=== PATIENT | male | born 1980 | race Hispanic/Latino ===

== ENCOUNTER 2024-09-15 11:51 | Inpatient (IN) | payer MEDICAID, SELFPAY ==
[2024-09-15 12:43] LABS: #Basophils 0.06 10x3/uL (0.0-0.2); #Eosinophils Less than 0.03 10x3/uL (0.0-0.7); %Basophils 1.1 % (0.0-1.0); %Eosinophils 0.2 % (0.0-10.0); %Lymphocytes 11.7 % (21.0-51.0); %Monocytes 8.5 % (0.0-10.0); %Neutrophils 78.1 % (42.0-75.0); Hematocrit 36.4 % (42.0-52.0); Hemoglobin 12.4 g/dL (14.0-18.0); Mean Corpuscular HGB CONC 34.1 g/dL (32.0-36.0); Mean Corpuscular Hemoglobin 35.3 pg (27.0-31.0); Mean Corpuscular Volume 103.7 fL (78.0-98.0); Mean Platelet Volume 11.6 fL (7.4-10.4); Platelet Count 22 10x3/uL (130-400); RBC Distribution Width 15.4 % (11.5-14.5); Red Blood Cell (RBC) Count 3.51 mill/uL (4.70-6.10)
[2024-09-15 12:48] LABS: INR-International Normal Ratio 1.2; PTT 33.2 sec (22.9-36.1); Prothrombin Time 15.2 sec (12.0-14.7)
[2024-09-15 12:48] LABS: Amphetamine Not Detected (NotDetected); Barbiturates Screen Not Detected (NotDetected); Benzodiazepine Screen Not Detected (NotDetected); Cocaine Metabolite Screen Not Detected (NotDetected); Methadone Not Detected (NotDetected); Methamphetamine Not Detected (NotDetected); Opiate Screen Not Detected (NotDetected); Oxycodone Screen Not Detected (NotDetected); Phencyclidine (PCP) Not Detected (NotDetected); THC/Cannabinoid Screen Not Detected (NotDetected); Tricyclic Screen Not Detected (NotDetected)
[2024-09-15 13:06] LABS: Lipase 43 U/L (8-78)
[2024-09-15 13:08] LABS: Acetaminophen Less than 10 mcg/mL (Less than 10); Alcohol 143.6 mg/dL (Less than 10); Salicylate Less than 8.0 mg/dL (Less than 8.0)
[2024-09-15 13:12] LABS: ALT (SGPT) 50 U/L (8-55); AST (SGOT) 166 U/L (5-34); Albumin 2.8 g/dL (3.5-5.0); Alkaline Phosphatase 210 U/L (40-110); Anion Gap 16 mmol/L (10-20); BUN (Urea Nitrogen) 5 mg/dL (8.9-20.6); Bilirubin, Total 6.9 mg/dL (0.2-1.2); Calc. Creatinine Clearance 0 mL/min (70-130); Calcium 8.2 mg/dL (7.8-10.44); Carbon Dioxide 23 mmol/L (22-29); Chloride 107 mmol/L (98-107); Estimated GFR 130; Glucose 101 mg/dL (70-105); Magnesium 1.3 mg/dL (1.6-2.6); Potassium 3.7 mmol/L (3.5-5.1); Protein, Total 7.8 g/dL (6.0-8.3); Sodium 142 mmol/L (136-145)
[2024-09-15 13:18] LABS: Platelet Adequacy Comment Platelets Decreased; Polychromasia SLIGHT = 2-3 cells HPF (0-2); Target Cells SLIGHT = 2-5 cells HPF (0-1)
[2024-09-15 13:22] LABS: Troponin I Less than 0.010 ng/mL (< 0.028)
[2024-09-15] MEDS ORDERED: LORazepam 2 MG/ML SYR.(CARPUJECT) ONE (13:37)
[2024-09-15] MEDS ORDERED: Magnesium 2 GM/50 ML BAG (IN WATER) ONE (13:37)
[2024-09-15] MEDS ORDERED: Pantoprazole 40 MG VIAL ONE ×2 (15:26→16:56)
[2024-09-15] MEDS ORDERED: Pantoprazole 80 MG, Admixture Fee 1 EACH in Sodium Chloride 0.9% 100 ML IVPB SCH (15:30)
[2024-09-15] MEDS ORDERED: Ondansetron PF 4 MG/2 ML Vial IVP PRN (16:25)
[2024-09-15] MEDS ORDERED: Ondansetron ODT 4 MG TAB PO PRN (16:25)
[2024-09-15] MEDS ORDERED: Lorazepam 1 MG TAB PO PRN (16:27)
[2024-09-15] MEDS ORDERED: Electrolyte Replacement Protocol 1 EACH FS SCH (16:30)
[2024-09-15] MEDS ORDERED: Electrolyte Replacement Protocol FS PRN (16:30)
[2024-09-15] MEDS ORDERED: Thiamine HCl 200 MG/2 ML VIAL ONE (16:47)
[2024-09-15] MEDS ORDERED: Sodium Chloride 0.9% 100 ML BAG ONE (16:56)
[2024-09-15] MEDS: Thiamine HCl 200 MG/2 ML VIAL SLOW IVP SCH (16:57)
[2024-09-15 18:07] LABS: #Basophils 0.05 10x3/uL (0.0-0.2); #Eosinophils Less than 0.03 10x3/uL (0.0-0.7); %Basophils 0.9 % (0.0-1.0); %Eosinophils 0.4 % (0.0-10.0); %Lymphocytes 14.2 % (21.0-51.0); %Monocytes 10.1 % (0.0-10.0); Hematocrit 32.2 % (42.0-52.0); Mean Corpuscular HGB CONC 34.2 g/dL (32.0-36.0); Mean Corpuscular Hemoglobin 35.4 pg (27.0-31.0); Mean Corpuscular Volume 103.5 fL (78.0-98.0); Mean Platelet Volume 12.6 fL (7.4-10.4); Platelet Count 18 10x3/uL (130-400); RBC Distribution Width 15.7 % (11.5-14.5); Red Blood Cell (RBC) Count 3.11 mill/uL (4.70-6.10)
[2024-09-15 19:06] LABS: Iron 175 ug/dL (65-175); Iron Binding Capacity, Total 179 mcg/dL (261-462)
[2024-09-15 19:30] LABS: HBSAB Concentration Less than 8.00 mIU/mL; HBsAg Index 0.36 S/CO (0-0.99); Hep A IgM AB NONREACTIVE (NonReactive); Hep A IgM S/CO 0.24 S/CO (0-0.79); Hep B Core IgM Index 0.07 S/CO (0-0.79); Hep B Core Total Ab NONREACTIVE (NonReactive); Hep B Core Total Index 0.25 S/CO (0-0.79); Hep B Surf AB NONREACTIVE (NonReactive); Hep B Surf Ag NONREACTIVE S/CO (NonReactive); Hep C IgG Ab NONREACTIVE S/CO (NonReactive); Hep C Index 0.13 S/CO (0-0.79); Hepatitis B Core IgM Abs NONREACTIVE S/CO (NonReactive)
[2024-09-15 23:38] LABS: #Basophils 0.05 10x3/uL (0.0-0.2); %Eosinophils 1.2 % (0.0-10.0); %Lymphocytes 16.4 % (21.0-51.0); Hematocrit 31.3 % (42.0-52.0); Hemoglobin 10.8 g/dL (14.0-18.0); Mean Corpuscular HGB CONC 34.5 g/dL (32.0-36.0); Mean Corpuscular Hemoglobin 35.8 pg (27.0-31.0); Mean Corpuscular Volume 103.6 fL (78.0-98.0); Mean Platelet Volume 11.8 fL (7.4-10.4); Platelet Count 18 10x3/uL (130-400); RBC Distribution Width 15.5 % (11.5-14.5); Red Blood Cell (RBC) Count 3.02 mill/uL (4.70-6.10)
[2024-09-16] MEDS: Octreotide Acetate 1,250 MCG in Sodium Chloride 0.9% 250 ML 250 ML IVPB SCH (00:12)
[2024-09-16 05:33] LABS: ALT (SGPT) 40 U/L (8-55); AST (SGOT) 141 U/L (5-34); Albumin 2.4 g/dL (3.5-5.0); Alkaline Phosphatase 175 U/L (40-110); Anion Gap 13 mmol/L (10-20); BUN (Urea Nitrogen) 8 mg/dL (8.9-20.6); Calc. Creatinine Clearance 178 mL/min (70-130); Calcium 8.2 mg/dL (7.8-10.44); Carbon Dioxide 22 mmol/L (22-29); Chloride 103 mmol/L (98-107); Estimated GFR 128; Globulin 5.2 g/dL (2.4-3.5); Glucose 80 mg/dL (70-105); Potassium 4.5 mmol/L (3.5-5.1); Protein, Total 7.6 g/dL (6.0-8.3); Sodium 133 mmol/L (136-145)
[2024-09-16 06:04] LABS: #Basophils 0.05 10x3/uL (0.0-0.2); %Lymphocytes 17.3 % (21.0-51.0); %Monocytes 11.5 % (0.0-10.0); %Neutrophils 68.8 % (42.0-75.0); Hematocrit 33.6 % (42.0-52.0); Hemoglobin 11.5 g/dL (14.0-18.0); Mean Corpuscular HGB CONC 34.2 g/dL (32.0-36.0); Mean Corpuscular Hemoglobin 35.4 pg (27.0-31.0); Mean Corpuscular Volume 103.4 fL (78.0-98.0); Mean Platelet Volume 11.2 fL (7.4-10.4); Platelet Count 35 10x3/uL (130-400); RBC Distribution Width 15.1 % (11.5-14.5); Red Blood Cell (RBC) Count 3.25 mill/uL (4.70-6.10)
[2024-09-16] MEDS: Folic Acid 1 MG TAB PO SCH (10:27)
[2024-09-16] MEDS: Multivit, Therapeutic 1 TAB PO SCH (10:27)
[2024-09-16 10:59] LABS: #Basophils 0.05 10x3/uL (0.0-0.2); %Eosinophils 1.2 % (0.0-10.0); %Monocytes 12.2 % (0.0-10.0); %Neutrophils 68.2 % (42.0-75.0); Hemoglobin 11.6 g/dL (14.0-18.0); Mean Corpuscular HGB CONC 35.2 g/dL (32.0-36.0); Mean Corpuscular Hemoglobin 36.1 pg (27.0-31.0); Mean Corpuscular Volume 102.8 fL (78.0-98.0); Platelet Count 35 10x3/uL (130-400); RBC Distribution Width 14.4 % (11.5-14.5); Red Blood Cell (RBC) Count 3.21 mill/uL (4.70-6.10)
[2024-09-16] MEDS ORDERED: Iopamidol-370 76% 500 ML MDV (1 ML CHARGE) ONE (14:13)
[2024-09-16] MEDS ORDERED: Lorazepam 1 MG TAB PO PRN (16:27)
[2024-09-16 17:04] LABS: #Basophils 0.05 10x3/uL (0.0-0.2); %Basophils 1.1 % (0.0-1.0); %Eosinophils 1.1 % (0.0-10.0); %Monocytes 10.6 % (0.0-10.0); Hematocrit 35.2 % (42.0-52.0); Hemoglobin 12.4 g/dL (14.0-18.0); Mean Corpuscular HGB CONC 35.2 g/dL (32.0-36.0); Mean Corpuscular Hemoglobin 36.2 pg (27.0-31.0); Mean Corpuscular Volume 102.6 fL (78.0-98.0); Platelet Count 35 10x3/uL (130-400); RBC Distribution Width 14.4 % (11.5-14.5); Red Blood Cell (RBC) Count 3.43 mill/uL (4.70-6.10)
[2024-09-16 22:07] LABS: #Basophils 0.04 10x3/uL (0.0-0.2); %Basophils 0.9 % (0.0-1.0); %Eosinophils 1.1 % (0.0-10.0); %Lymphocytes 16.6 % (21.0-51.0); %Monocytes 11.9 % (0.0-10.0); %Neutrophils 68.9 % (42.0-75.0); Hematocrit 33.4 % (42.0-52.0); Hemoglobin 11.9 g/dL (14.0-18.0); Mean Corpuscular HGB CONC 35.6 g/dL (32.0-36.0); Mean Corpuscular Hemoglobin 36.7 pg (27.0-31.0); Mean Corpuscular Volume 103.1 fL (78.0-98.0); Mean Platelet Volume 12.3 fL (7.4-10.4); Platelet Count 37 10x3/uL (130-400); RBC Distribution Width 14.2 % (11.5-14.5); Red Blood Cell (RBC) Count 3.24 mill/uL (4.70-6.10)
[2024-09-17 06:52] LABS: #Basophils 0.05 10x3/uL (0.0-0.2); %Basophils 0.8 % (0.0-1.0); %Eosinophils 1.1 % (0.0-10.0); %Lymphocytes 18.1 % (21.0-51.0); %Monocytes 9.1 % (0.0-10.0); %Neutrophils 70.4 % (42.0-75.0); Hematocrit 37.9 % (42.0-52.0); Hemoglobin 13.2 g/dL (14.0-18.0); Mean Corpuscular HGB CONC 34.8 g/dL (32.0-36.0); Mean Corpuscular Hemoglobin 35.5 pg (27.0-31.0); Mean Corpuscular Volume 101.9 fL (78.0-98.0); Mean Platelet Volume 13.1 fL (7.4-10.4); Platelet Count 45 10x3/uL (130-400); RBC Distribution Width 14.2 % (11.5-14.5); Red Blood Cell (RBC) Count 3.72 mill/uL (4.70-6.10)
[2024-09-17 06:57] LABS: ALT (SGPT) 44 U/L (8-55); AST (SGOT) 137 U/L (5-34); Alkaline Phosphatase 209 U/L (40-110); Anion Gap 12 mmol/L (10-20); BUN (Urea Nitrogen) 11 mg/dL (8.9-20.6); Calc. Creatinine Clearance 152 mL/min (70-130); Calcium 8.7 mg/dL (7.8-10.44); Carbon Dioxide 20 mmol/L (22-29); Chloride 103 mmol/L (98-107); Estimated GFR 122; Glucose 105 mg/dL (70-105); Magnesium 1.7 mg/dL (1.6-2.6); Potassium 3.4 mmol/L (3.5-5.1); Sodium 132 mmol/L (136-145)
[2024-09-17] MEDS: Magnesium 2 GM/50 ML(in water) 2 GM in Premix 1 BAG IVPB SCH (10:23)
[2024-09-17] MEDS: Potassium Chloride 20 MEQ TAB PO SCH (10:24)
[2024-09-17] MEDS: Pantoprazole 40 MG VIAL IVP SCH (20:12)
[2024-09-17] MEDS: Lorazepam 1 MG TAB PO PRN (20:55)
[2024-09-18] MEDS: Lorazepam 2 MG/ML VIAL SLOW IVP SCH ×3 (04:42→19:16)
[2024-09-18 06:36] LABS: #Basophils 0.05 10x3/uL (0.0-0.2); %Basophils 1.1 % (0.0-1.0); %Eosinophils 1.1 % (0.0-10.0); %Lymphocytes 17.7 % (21.0-51.0); %Monocytes 14.3 % (0.0-10.0); %Neutrophils 65.4 % (42.0-75.0); Hematocrit 33.8 % (42.0-52.0); Hemoglobin 11.5 g/dL (14.0-18.0); Mean Corpuscular Hemoglobin 35.7 pg (27.0-31.0); Mean Platelet Volume 11.6 fL (7.4-10.4); Platelet Count 43 10x3/uL (130-400); RBC Distribution Width 14.5 % (11.5-14.5); Red Blood Cell (RBC) Count 3.22 mill/uL (4.70-6.10)
[2024-09-18 06:43] LABS: ALT (SGPT) 42 U/L (8-55); AST (SGOT) 121 U/L (5-34); Albumin 2.7 g/dL (3.5-5.0); Alkaline Phosphatase 171 U/L (40-110); Anion Gap 12 mmol/L (10-20); BUN (Urea Nitrogen) 10 mg/dL (8.9-20.6); Bilirubin, Total 9.1 mg/dL (0.2-1.2); Calc. Creatinine Clearance 175 mL/min (70-130); Calcium 8.4 mg/dL (7.8-10.44); Carbon Dioxide 21 mmol/L (22-29); Chloride 104 mmol/L (98-107); Estimated GFR 127; Globulin 5.4 g/dL (2.4-3.5); Glucose 85 mg/dL (70-105); Potassium 3.6 mmol/L (3.5-5.1); Protein, Total 8.1 g/dL (6.0-8.3); Sodium 133 mmol/L (136-145)
[2024-09-18] MEDS ORDERED: Lorazepam 2 MG/ML VIAL SLOW IVP SCH (09:00)
[2024-09-18] MEDS ORDERED: Dexmedetomidine In 0.9 % NaCl 100 ML IVPB SCH (11:07)
[2024-09-18] MEDS: Dexmedetomidine In 0.9 % NaCl 100 ML IVPB SCH (12:45)
[2024-09-18] MEDS: Lorazepam 2 MG/ML VIAL ONE (12:51)
[2024-09-18] MEDS ORDERED: Lorazepam 0.5 MG TAB PO PRN (16:27)
[2024-09-18] MEDS: Dextrose 5%-Lactated Ringers 1,000 ML IV SCH (17:12)
[2024-09-18] MEDS: Thiamine 100 MG TAB PO SCH (17:16)
[2024-09-18] MEDS: Multivitamins, Adult 10 ML, Folic Acid 1 MG, Thiamine HCl 100 MG in Dextrose 5 %-0.45 %... IV SCH (17:18)
[2024-09-18] MEDS: Lorazepam 2 MG/ML VIAL IM PRN (23:33)
[2024-09-19 03:35] LABS: #Basophils 0.04 10x3/uL (0.0-0.2); %Basophils 1.3 % (0.0-1.0); %Eosinophils 1.9 % (0.0-10.0); %Lymphocytes 18.7 % (21.0-51.0); %Monocytes 13.7 % (0.0-10.0); %Neutrophils 63.8 % (42.0-75.0); Hematocrit 37.1 % (42.0-52.0); Hemoglobin 12.4 g/dL (14.0-18.0); Mean Corpuscular HGB CONC 33.4 g/dL (32.0-36.0); Mean Corpuscular Hemoglobin 36.2 pg (27.0-31.0); Mean Corpuscular Volume 108.2 fL (78.0-98.0); Platelet Count 42 10x3/uL (130-400); RBC Distribution Width 14.3 % (11.5-14.5); Red Blood Cell (RBC) Count 3.43 mill/uL (4.70-6.10)
[2024-09-19 03:45] LABS: Phosphorus 2.8 mg/dL (2.3-4.7)
[2024-09-19 03:47] LABS: ALT (SGPT) 43 U/L (8-55); AST (SGOT) 121 U/L (5-34); Albumin 2.5 g/dL (3.5-5.0); Alkaline Phosphatase 172 U/L (40-110); Anion Gap 9 mmol/L (10-20); BUN (Urea Nitrogen) 7 mg/dL (8.9-20.6); Bilirubin, Total 8.1 mg/dL (0.2-1.2); Calc. Creatinine Clearance 195 mL/min (70-130); Calcium 8.1 mg/dL (7.8-10.44); Carbon Dioxide 20 mmol/L (22-29); Chloride 103 mmol/L (98-107); Estimated GFR 135; Globulin 5.4 g/dL (2.4-3.5); Glucose 200 mg/dL (70-105); Magnesium 1.5 mg/dL (1.6-2.6); Potassium 3.6 mmol/L (3.5-5.1); Protein, Total 7.9 g/dL (6.0-8.3); Sodium 128 mmol/L (136-145)
[2024-09-19] MEDS: Magnesium 2 GM/50 ML(in water) 2 GM in Premix 1 BAG IVPB SCH ×2 (05:18→15:23)
[2024-09-19] MEDS: Sodium Chloride 0.9% 1,000 ML IV SCH ×3 (11:55→17:11)
[2024-09-19] MEDS ORDERED: Electrolyte Replacement Protocol FS PRN (14:30)
[2024-09-19] MEDS: Albumin 25% 100 ML ONE (16:24)
[2024-09-19] MEDS: Multivitamins, Adult 10 ML, Folic Acid 1 MG, Thiamine HCl 100 MG, Admixture Fee 1 EACH ... IV SCH (17:58)
[2024-09-19] MEDS: Rifaximin 550 MG TAB PER TUBE SCH (20:52)
[2024-09-19] MEDS: Lactulose 20 GM (30 mL) UDCUP PER TUBE SCH (20:52)
[2024-09-19] MEDS: Albumin 25% 25 GM (100 mL) BOT IVPB SCH (20:52)
[2024-09-20 03:58] LABS: #Basophils 0.04 10x3/uL (0.0-0.2); %Basophils 0.7 % (0.0-1.0); %Eosinophils 0.5 % (0.0-10.0); %Lymphocytes 13.3 % (21.0-51.0); %Monocytes 12.9 % (0.0-10.0); %Neutrophils 72.4 % (42.0-75.0); Hematocrit 31.8 % (42.0-52.0); Hemoglobin 10.9 g/dL (14.0-18.0); Mean Corpuscular HGB CONC 34.3 g/dL (32.0-36.0); Platelet Count 40 10x3/uL (130-400); RBC Distribution Width 14.6 % (11.5-14.5); Red Blood Cell (RBC) Count 3.03 mill/uL (4.70-6.10)
[2024-09-20 04:09] LABS: ALT (SGPT) 68 U/L (8-55); AST (SGOT) 182 U/L (5-34); Albumin 2.9 g/dL (3.5-5.0); Alkaline Phosphatase 135 U/L (40-110); Anion Gap 9 mmol/L (10-20); BUN (Urea Nitrogen) 7 mg/dL (8.9-20.6); Bilirubin, Total 7.4 mg/dL (0.2-1.2); Calc. Creatinine Clearance 160 mL/min (70-130); Calcium 7.8 mg/dL (7.8-10.44); Carbon Dioxide 21 mmol/L (22-29); Chloride 106 mmol/L (98-107); Estimated GFR 127; Globulin 4.2 g/dL (2.4-3.5); Glucose 97 mg/dL (70-105); Magnesium 1.7 mg/dL (1.6-2.6); Potassium 3.6 mmol/L (3.5-5.1); Protein, Total 7.1 g/dL (6.0-8.3); Sodium 132 mmol/L (136-145)
[2024-09-20 04:27] LABS: Free T4 (Free Thyroxine) 0.92 ng/dL (0.70-1.48)
[2024-09-20] MEDS: Magnesium 2 GM/50 ML(in water) 2 GM in Premix 1 BAG IVPB SCH (10:03)
[2024-09-20] MEDS: Sodium Chloride 0.9% 500 ML IV SCH (17:24)
[2024-09-21 23:31] VITALS: BMI 25.6
[2024-09-22 05:07] LABS: ALT (SGPT) 80 U/L (8-55); AST (SGOT) 141 U/L (5-34); Albumin 3.5 g/dL (3.5-5.0); Alkaline Phosphatase 150 U/L (40-110); Anion Gap 12 mmol/L (10-20); BUN (Urea Nitrogen) 7 mg/dL (8.9-20.6); Calc. Creatinine Clearance 149 mL/min (70-130); Calcium 8.8 mg/dL (7.8-10.44); Carbon Dioxide 20 mmol/L (22-29); Chloride 106 mmol/L (98-107); Estimated GFR 125; Globulin 4.4 g/dL (2.4-3.5); Glucose 96 mg/dL (70-105); Magnesium 1.5 mg/dL (1.6-2.6); Phosphorus 3.4 mg/dL (2.3-4.7); Potassium 3.7 mmol/L (3.5-5.1); Protein, Total 7.9 g/dL (6.0-8.3); Sodium 134 mmol/L (136-145)
[2024-09-22] MEDS: Magnesium 2 GM/50 ML(in water) 2 GM in Premix 1 BAG IVPB SCH (09:45)
[2024-09-22 15:49] VITALS: BMI 25.6
[2024-09-23] MEDS: Lorazepam 2 MG/ML VIAL SLOW IVP SCH (10:59)
[2024-09-23] MEDS: Magnesium 2 GM/50 ML(in water) 2 GM in Premix 1 BAG IVPB SCH (11:01)
[2024-09-23 12:12] LABS: EliA Vaculitis New Method **** NEW METHOD ****; Mitochondrial Ab 2.2 U/mL (<4 Negative)
[2024-09-24] MEDS: Lorazepam 2 MG/ML VIAL SLOW IVP SCH (04:19)
[2024-09-24] MEDS: Rifaximin 550 MG TAB PO SCH (20:01)
[2024-09-24] MEDS: Pantoprazole 40 MG DR.TAB PO SCH (20:01)
[2024-09-25 12:11] LABS: #Basophils 0.06 10x3/uL (0.0-0.2); %Basophils 1.2 % (0.0-1.0); %Lymphocytes 19.9 % (21.0-51.0); %Monocytes 16.4 % (0.0-10.0); %Neutrophils 61.3 % (42.0-75.0); Hematocrit 35.5 % (42.0-52.0); Hemoglobin 11.9 g/dL (14.0-18.0); Mean Corpuscular HGB CONC 33.5 g/dL (32.0-36.0); Mean Corpuscular Hemoglobin 35.7 pg (27.0-31.0); Mean Corpuscular Volume 106.6 fL (78.0-98.0); Platelet Count 58 10x3/uL (130-400); Red Blood Cell (RBC) Count 3.33 mill/uL (4.70-6.10)
[2024-09-25 12:23] LABS: Calc. Creatinine Clearance 156 mL/min (70-130); Estimated GFR 126
[2024-09-25 15:37] LABS: AST (SGOT) 150 U/L (5-34); Albumin 3.5 g/dL (3.5-5.0); Alkaline Phosphatase 187 U/L (40-110); Anion Gap 11 mmol/L (10-20); BUN (Urea Nitrogen) 9 mg/dL (8.9-20.6); Bilirubin, Total 6.7 mg/dL (0.2-1.2); Calcium 9.2 mg/dL (7.6-10.4); Carbon Dioxide 24 mmol/L (22-29); Chloride 106 mmol/L (98-107); Globulin 4.7 g/dL (2.4-3.5); Glucose 132 mg/dL (70-105); Protein, Total 8.2 g/dL (6.0-8.3); Sodium 137 mmol/L (136-145)
[2024-09-25 15:38] LABS: ALT (SGPT) 96 U/L (8-55)
[2024-09-26 00:03] VITALS: TEMP 98.4
[2024-09-26 04:57] LABS: #Basophils 0.08 10x3/uL (0.0-0.2); %Basophils 1.6 % (0.0-1.0); %Eosinophils 1.4 % (0.0-10.0); %Neutrophils 46.6 % (42.0-75.0); Hematocrit 34.9 % (42.0-52.0); Hemoglobin 11.6 g/dL (14.0-18.0); Mean Corpuscular HGB CONC 33.2 g/dL (32.0-36.0); Mean Corpuscular Hemoglobin 35.2 pg (27.0-31.0); Mean Corpuscular Volume 105.8 fL (78.0-98.0); Mean Platelet Volume 12.2 fL (7.4-10.4); Platelet Count 62 10x3/uL (130-400)
[2024-09-26 05:08] LABS: ALT (SGPT) 95 U/L (8-55); AST (SGOT) 143 U/L (5-34); Albumin 3.3 g/dL (3.5-5.0); Alkaline Phosphatase 183 U/L (40-110); Anion Gap 10 mmol/L (10-20); BUN (Urea Nitrogen) 7 mg/dL (8.9-20.6); Bilirubin, Total 5.8 mg/dL (0.2-1.2); Calc. Creatinine Clearance 175 mL/min (70-130); Calcium 9.4 mg/dL (7.8-10.44); Carbon Dioxide 24 mmol/L (22-29); Chloride 103 mmol/L (98-107); Estimated GFR 130; Globulin 4.6 g/dL (2.4-3.5); Glucose 95 mg/dL (70-105); Potassium 3.6 mmol/L (3.5-5.1); Protein, Total 7.9 g/dL (6.0-8.3); Sodium 133 mmol/L (136-145)
[2024-09-26 08:44] VITALS: BP 116/70
== END 2024-09-26 18:42 | disposition home or self-care (01) | DRG 432 ==
LOC: ERS 11:51 → ERHOLD 16:10 → MSONC 21:09 → SURG B 09-16 19:38 → SURG A 09-18 09:08 → IMCU/EMU 09-18 12:23 → T4-A 09-23 13:54
PROVIDERS: ADMIT Internal Medicine; ATTEND Internal Medicine
PROC: 3E0234Z Introduction of Serum, Toxoid and Vaccine into Muscle, Percutaneous Approach (ICD-10-PCS; principal; 2024-09-15)
PROC: 30233J1 Transfusion of Nonautologous Serum Albumin into Peripheral Vein, Percutaneous Approach (ICD-10-PCS; 2024-09-15)
DX: K70.30 Alcoholic cirrhosis of liver without ascites (principal); G93.41 Metabolic encephalopathy; K92.0 Hematemesis; K76.6 Portal hypertension; E87.1 Hypo-osmolality and hyponatremia; E72.20 Disorder of urea cycle metabolism, unspecified; F10.131 Alcohol abuse with withdrawal delirium; F10.121 Alcohol abuse with intoxication delirium; K76.89 Other specified diseases of liver; K76.82 Hepatic encephalopathy; E83.41 Hypermagnesemia; D69.6 Thrombocytopenia, unspecified; E80.6 Other disorders of bilirubin metabolism; Z79.899 Other long term (current) drug therapy; Z23 Encounter for immunization; D53.9 Nutritional anemia, unspecified; R44.1 Visual hallucinations; Z91.83 Wandering in diseases classified elsewhere; R03.1 Nonspecific low blood-pressure reading; E56.9 Vitamin deficiency, unspecified; Y90.6 Blood alcohol level of 120-199 mg/100 ml
CPT/HCPCS: 36415; 36416; 36430; 71045; 74178; 74183; 76705; 80053; 80306; 80307; 82105; 82140; 82533; 82607; 82728; 83516; 83540; 83550; 83690; 83735; 84100; 84439; 84443; 84481; 84484; 85025; 85610; 85730; 86015; 86704; 86705; 86706; 86708; 86709; 86803; 86850; 86900; 86901; 87340; 93005; J2060; J2354; J2470; J3411; J3475; J7030; J7042; J7050; P9035; P9047; Q9967